=== PATIENT | female | born 1990 ===

== ENCOUNTER → 2023-01-23 | Outpatient (CLI) | payer OTHER ==
[2023-01-23 18:07] LABS: Source, Urine Clean Catch
[2023-01-23 19:10] LABS: Amorphous Light (0-Heavy); Bacteria Many /hpf; Red Blood Cells, Urine 0-2 /hpf (0-2); Squamous Epithelial Cells Rare /hpf (Few)
== END | disposition home or self-care (01) ==
LOC: LAB SHORT 18:05 → LAB 18:05
PROVIDERS: Advanced Practice Midwife
DX: Z34.01 Encounter for supervision of normal first pregnancy, first trimester (principal)
CPT/HCPCS: 81015; 87086

== ENCOUNTER → 2023-08-21 | Outpatient (CLI) | payer OTHER ==
[~2023-08-21] MED LIST: LOW DOSE ASPIRI81 M1 PO; PRENATAL TABLE1 EAC2 PO
== END | disposition home or self-care (01) ==
LOC: LAB SHORT 15:42
DX: O09.893 Supervision of other high risk pregnancies, third trimester (principal)
CPT/HCPCS: 87081; 87150

== ENCOUNTER 2023-09-11 19:15 | Inpatient (IN) | payer OTHER ==
[~2023-09-11] VITALS: Ht 170.2 cm; Wt 133.1 kg
[2023-09-11] MEDS ORDERED: Ampicillin Sod 2,000 MG in NS 100 ML IV STA (20:38)
[2023-09-11] MEDS ORDERED: Methylergonovine Maleate 0.2MG / ML 1ML Amp IM SCH (20:40)
[2023-09-11] MEDS ORDERED: LR Oxytocin 20 Units 1,000 ML IV SCH ×2 (20:40)
[2023-09-11] MEDS ORDERED: Lactated Ringer's 1,000 ML IV PRN ×2 (20:40→20:45)
[2023-09-11] MEDS ORDERED: Misoprostol 25 MCG Tab VAG PRN (20:40)
[2023-09-11] MEDS ORDERED: Oxytocin 10 Unit / ML Vial IM PRN (20:50)
[2023-09-11] MEDS ORDERED: Misoprostol 200 MCG Tab PR PRN (20:50)
[2023-09-11] MEDS ORDERED: Bupivacaine HCl 2.5 MG/ML 10ML P/F Injection XX PRN (20:55)
[2023-09-11] MEDS ORDERED: Bupivacaine 0.5% HCl 5 MG/ML 30MLVIAL XX PRN (20:55)
[2023-09-11] MEDS ORDERED: Lidocaine HCl 1% 30 ML SDV XX PRN (20:55)
[2023-09-11] MEDS ORDERED: ePHEDrine Sulfate 50 MG/ML 1ML Injection XX PRN (21:00)
[2023-09-11] MEDS ORDERED: FentaNYL 2mcg/ml-Bup 0.1% Epd 250 ML EPI PRN (21:00)
[2023-09-11] MEDS ORDERED: PRENATAL TABLE1 EAC2 PO (21:21)
[2023-09-11] MEDS ORDERED: LOW DOSE ASPIRI81 M1 PO (21:22)
[2023-09-11] MEDS ORDERED: Acetaminophen 500 MG Tab PO PRN (21:50)
[2023-09-11] MEDS ORDERED: Calcium Carbonate 500 MG Tab Chew PO PRN (21:50)
[2023-09-11] MEDS ORDERED: FentaNYL Citrate 50 MCG/ML 2 ML Injection IV PRN (21:50)
[2023-09-11] MEDS ORDERED: Ondansetron HCl 2 MG / ML 2ML Vial IV PRN (21:55)
[2023-09-11] MEDS ORDERED: Zolpidem Tartrate 5 MG Tab PO PRN (21:55)
[2023-09-11] MEDS ORDERED: CeFAZolin Sodium 2,000 MG in NS 100 ML IV ONE (22:35)
[2023-09-11 23:54] VITALS: BP 112/68
[2023-09-12] VITALS (42 sets, daily range): BP systolic 79–182; BP diastolic 44–137
[2023-09-12 00:32] LABS: BASOPHILS ABSOLUTE AUTO 0.03 K/mm3 (0.00-0.23); BASOPHILS PERCENT AUTO 0 % (0-2); EOSINOPHILS ABSOLUTE AUTO 0.14 K/mm3 (0.00-0.68); EOSINOPHILS PERCENT AUTO 1 % (0-6); Hematocrit 35.5 % (33.0-51.0); Hemoglobin 12.6 g/dL (11.5-16.0); IMMATURE GRAN PERCENT AUTO 1 % (0-1); LYMPHOCYTES ABSOLUTE AUTO 2.47 K/mm3 (0.84-5.20); LYMPHOCYTES PERCENT AUTO 18 % (21-46); MONOCYTES ABSOLUTE AUTO 0.91 K/mm3 (0.16-1.47); MONOCYTES PERCENT AUTO 7 % (4-13); Mean Corpuscular HGB 29.4 pg (26.0-34.0); Mean Corpuscular HGB Conc 35.5 g/dL (31.5-36.5); Mean Corpuscular Volume 83 fL (80-100); Mean Platelet Volume 9.3 fL (9.1-12.4); NEUTROPHILS ABSOLUTE AUTO 10.28 K/mm3 (1.96-9.15); NEUTROPHILS PERCENT AUTO 74 % (41-73); Platelet Count 309 K/mm3 (150-400); RDW Coefficient Variation 13.3 % (11.7-14.2); RDW Standard Deviation 40.4 fL (35.1-46.3); Red Blood Cell Count 4.28 M/mm3 (3.80-5.20); White Blood Cell Count 13.93 K/mm3 (4.00-11.30)
[2023-09-12] MEDS ORDERED: Ampicillin Sod 1,000 MG in NS 100 ML IV SCH (08:00)
[2023-09-12] MEDS ORDERED: CeFAZolin Sodium 1,000 MG in NS 100 ML IV SCH ×2 (08:00→08:30)
[2023-09-12] MEDS ORDERED: Ketorolac Tromethamine 30mg Vial IV ONE ×2 (17:55→19:00)
[2023-09-12] MEDS ORDERED: Benzocaine Topical Anesthetic Spray 60GM TOP PRN (18:40)
[2023-09-12] MEDS ORDERED: Misoprostol 200 MCG Tab PR PRN (18:40)
[2023-09-12] MEDS ORDERED: Acetaminophen 500 MG Tab PO PRN (18:40)
[2023-09-12] MEDS ORDERED: Docusate Sodium 100 MG Cap PO PRN (18:45)
[2023-09-12] MEDS ORDERED: Methylergonovine Maleate 0.2MG / ML 1ML Amp IM PRN (18:45)
[2023-09-12] MEDS ORDERED: LR Oxytocin 20 Units 1,000 ML IV SCH (18:45)
[2023-09-12] MEDS ORDERED: Lactated Ringer's 1,000 ML IV SCH (18:45)
[2023-09-12] MEDS ORDERED: Ibuprofen 400 MG Tab PO PRN (18:45)
[2023-09-12] MEDS ORDERED: Witch Hazel/Glycerin PADS TOP PRN (18:45)
[2023-09-12] MEDS ORDERED: Carboprost Tromethamine 250 MCG/ML 1ML Amp IM PRN (18:45)
[2023-09-12] MEDS ORDERED: Ketorolac Tromethamine 30mg Vial IV PRN (19:00)
[2023-09-13 00:35] VITALS: BP 109/55
[2023-09-13 04:41] VITALS: BP 91/58
[2023-09-13 04:43] VITALS: BP 89/57
[2023-09-13 07:36] VITALS: BP 100/64
[2023-09-13] MEDS ORDERED: Prenatal Vit/FE Fumarate/FA 1 Tab PO SCH (09:00)
[2023-09-13 13:06] VITALS: BP 89/53
[2023-09-13] MEDS ORDERED: Lanolin Cream TOP ONE (15:10)
== END 2023-09-13 18:48 | disposition home or self-care (01) | DRG 807 ==
LOC: OBS 19:15 → BC 19:20 → OBS 19:36 → BC 19:38
PROVIDERS: ADMIT Obstetrics & Gynecology
PROC: 10E0XZZ Delivery of Products of Conception, External Approach (ICD-10-PCS; principal; 2023-09-12)
PROC: 10907ZC Drainage of Amniotic Fluid, Therapeutic from Products of Conception, Via Natural or Artificial Opening (ICD-10-PCS; 2023-09-12)
PROC: 0HQ9XZZ Repair Perineum Skin, External Approach (ICD-10-PCS; 2023-09-12)
PROC: 3E0P7VZ Introduction of Hormone into Female Reproductive, Via Natural or Artificial Opening (ICD-10-PCS; 2023-09-12)
PROC: 3E033VJ Introduction of Other Hormone into Peripheral Vein, Percutaneous Approach (ICD-10-PCS; 2023-09-12)
PROC: 4A1HXCZ Monitoring of Products of Conception, Cardiac Rate, External Approach (ICD-10-PCS; 2023-09-12)
DX: O99.214 Obesity complicating childbirth (principal); Z37.0 Single live birth; Z3A.40 40 weeks gestation of pregnancy; J45.909 Unspecified asthma, uncomplicated; O99.52 Diseases of the respiratory system complicating childbirth; O99.344 Other mental disorders complicating childbirth; F41.8 Other specified anxiety disorders; O99.02 Anemia complicating childbirth; D57.3 Sickle-cell trait; O70.0 First degree perineal laceration during delivery; Z79.82 Long term (current) use of aspirin
CPT/HCPCS: 36415; 51702; 85025; 86850; 86900; 86901; 86923; A9270; J0690; J1885; J2590; J7120

== ENCOUNTER → 2024-03-04 | Outpatient (CLI) | payer OTHER ==
[2024-03-13 16:05] LABS: HPV GENOTYPE 16 BY TMA Not Detected; HPV GENOTYPE 18/45 BY TMA Not Detected; HPV HIGH RISK BY TMA Detected; HPV SOURCE Cervical; HPVG SOURCE Cervical
== END | disposition home or self-care (01) ==
LOC: LAB 11:07 → LAB SHORT 11:07
PROVIDERS: Obstetrics & Gynecology
DX: Z01.419 Encounter for gynecological examination (general) (routine) without abnormal findings (principal)
CPT/HCPCS: 87624; 87625; G0123

== ENCOUNTER 2024-09-01 21:49 | Emergency (ER) | payer OTHER ==
[~2024-09-01] VITALS: Ht 170.2 cm; Wt 127.0 kg
[2024-09-01 22:04] VITALS: BP 122/78
[2024-09-01] MEDS ORDERED: ONDA4 PO (22:25)
[2024-09-01] MEDS ORDERED: Ondansetron 4 MG TAB PO ONE (22:30)
== END 2024-09-01 22:34 | disposition home or self-care (01) ==
LOC: ER 21:49
DX: R11.2 Nausea with vomiting, unspecified (principal); R19.7 Diarrhea, unspecified; Z88.0 Allergy status to penicillin
CPT/HCPCS: 99283; A9270